=== PATIENT | female | born 1985 | race Caucasian/White ===

== ENCOUNTER 2016-12-19 14:15 | Emergency (ER) | payer OTHER ==
[~2016-12-19 14:15] MED LIST: MULT-317 PO
[2016-12-19] MEDS ORDERED: IV NORMAL SALINE 500ML 500 ML IV ONE (14:30)
[2016-12-19 14:50] LABS: BASO % 1 % (0-3); EOS % 1 % (0-3); HEMATOCRIT 43.6 % (36.0-47.0); HEMOGLOBIN 15.2 g/dL (12.0-15.5); LYMPH # 1.5 x10^3/uL (1.0-4.8); LYMPH % 20 % (24-48); MEAN CORPUSCULAR HEMOGLOBIN 33 pg (25-35); MEAN CORPUSCULAR HGB CONC 35 g/dL (31-37); MEAN CORPUSCULAR VOLUME 95 fL (79-100); MONO # 0.3 x10^3/uL (0.0-1.1); MONO % 4 % (0-9); NEUT # 5.5 x10^3uL (1.8-7.7); NEUT % 75 % (31-73); PLATELET COUNT 342 x10^3/uL (140-400); RED BLOOD COUNT 4.61 x10^6/uL (3.50-5.40); RED CELL DISTRIBUTION WIDTH 12.3 % (11.5-14.5); WHITE BLOOD COUNT 7.3 x10^3/uL (4.0-11.0)
[2016-12-19 15:03] LABS: CALCIUM 8.8 mg/dL (8.5-10.1); CREATININE 0.5 mg/dL (0.6-1.0); DIRECT BILIRUBIN 0.1 mg/dL (0.0-0.2); GFR 142.1; POTASSIUM 3.6 mmol/L (3.5-5.1); TOTAL BILIRUBIN 0.4 mg/dL (0.2-1.0); TOTAL PROTEIN 7.7 g/dL (6.4-8.2)
[2016-12-19] MEDS ORDERED: ONDANSETRON PF 4 MG/2 ML VIAL. IV ONE (15:15)
[2016-12-19] MEDS: HYDROmorphone PF 1 MG/ML DISP.SYRIN IV PRN ×2 (15:24→17:04)
--- NOTE | 2016-12-19 15:45 | PHYS DOC ---
Past History Past Medical History: Heart Disease, Other Past Surgical History: Appendectomy, Other Alcohol Use: Occasionally Drug Use: None Adult General Chief Complaint Chief Complaint: ABDOMINAL PAIN HPI HPI 31-year-old female with history of a partial hysterectomy which included the uterus and the cervix complicated by mesh erosion into the bladder which had to be surgically corrected by a urologist at [facility] many years ago. She presents today to the emergency department with left lower quadrant abdominal pain that is sharp shooting pain nonradiating intermittent and without alleviating factors. She also recently reports having an ablation. There are no alleviating or exacerbating factors to her pain outside of when she stands up her pain is worse. She denies any hernias of the groin or pain in the groin but describes her pain is in the abdomen. She reports that the ablations surgical site was in the right groin and her pain is in the left abdomen. Review of systems is negative for chest pain shortness of breath. She denies unilateral leg swelling hemoptysis or personal or family history of blood clotting disorders. All other review of systems is negative unless otherwise noted in history of present illness. ED course: 31-year-old female presenting to the emergency department today with left lower quadrant abdominal pain. Vital signs show mild tachycardia likely secondary to pain. Pertinent physical examination findings show an abdomen is soft and mildly tender in the left lower quadrant without rebound tenderness or guarding. Nontender groin without any evidence of herniation or palpable aneurysms. Groin site is clean dry and intact. Palpable pulses in both lower extremities. IV established and fluids nausea and pain medications ordered along with blood work and CT of the abdomen pelvis. Urinalysis negative. Blood work unremarkable. Patient's tachycardia improved and on reexamination her pain and improved. The patient was then discharged home in stable condition to follow up with their primary care physician over the next 2-3 days. They were to return if their symptoms worsened or if they were concerned for any reason. [id number] discharge instructions and return precautions were given. Patient' s questions were answered to their satisfaction. Patient is comfortable plan. Review of Systems Review of Systems SEE ABOVE Current Medications Current Medications Current Medications Medications (Trade) Dose Ordered Sig/Deisi Start Time Stop Time Status Last Admin Dose Admin Hydromorphone HCl (Dilaudid) 0.5 mg PRN Q30MIN PRN 12/19/16 15:15 12/19/16 15:24 0.5 MG Ondansetron HCl (Zofran) 4 mg 1X ONCE 12/19/16 15:15 12/19/16 15:16 DC 12/19/16 15:24 4 MG Sodium Chloride 500 ml @ 0 mls/hr 1X ONCE 12/19/16 14:30 12/19/16 14:31 DC 12/19/16 15:17 500 MLS/HR Allergies Allergies Allergies Coded Allergies Type Severity Reaction Last Updated Verified No Known Drug Allergies 04/24/13 No Physical Exam Physical Exam Constitutional: Well developed, well nourished, no acute distress, non-toxic appearance. [] HENT: Normocephalic, atraumatic, bilateral external ears normal, oropharynx moist, no oral exudates, nose normal. [] Eyes: PERRLA, EOMI, conjunctiva normal, no discharge. [] Neck: Normal range of motion, no tenderness, supple, no stridor. [] Cardiovascular:Heart rate regular rhythm, no murmur [] Lungs & Thorax: Bilateral breath sounds clear to auscultation [] Abdomen: Bowel sounds normal, see above, no masses, no pulsatile masses. [] Skin: Warm, dry, no erythema, no rash. [] Back: No tenderness, no CVA tenderness. [] Extremities: No tenderness, no cyanosis, no clubbing, ROM intact, no edema. [] Neurologic: Alert and oriented X 3, normal motor function, normal sensory function, no focal deficits noted. [] Psychologic: Affect normal, judgement normal, mood normal. [] Current Patient Data Vital Signs Vital Signs Date Time Temp Pulse Resp B/P (MAP) Pulse Ox O2 Delivery O2 Flow Rate FiO2 12/19/16 15:24 22 96 Room Air 12/19/16 14:20 98.7 102 Lab Results Laboratory Tests Test 12/19/16 14:34 White Blood Count 7.3 x10^3/uL (4.0-11.0) Red Blood Count 4.61 x10^6/uL (3.50-5.40) Hemoglobin 15.2 g/dL (12.0-15.5) Hematocrit 43.6 % (36.0-47.0) Mean Corpuscular Volume 95 fL (79-100) Mean Corpuscular Hemoglobin 33 pg (25-35) Mean Corpuscular Hemoglobin Concent 35 g/dL (31-37) Red Cell Distribution Width 12.3 % (11.5-14.5) Platelet Count 342 x10^3/uL (140-400) Neutrophils (%) (Auto) 75 % (31-73) H Lymphocytes (%) (Auto) 20 % (24-48) L Monocytes (%) (Auto) 4 % (0-9) Eosinophils (%) (Auto) 1 % (0-3) Basophils (%) (Auto) 1 % (0-3) Neutrophils # (Auto) 5.5 x10^3uL (1.8-7.7) Lymphocytes # (Auto) 1.5 x10^3/uL (1.0-4.8) Monocytes # (Auto) 0.3 x10^3/uL (0.0-1.1) Eosinophils # (Auto) 0.0 x10^3/uL (0.0-0.7) Basophils # (Auto) 0.0 x10^3/uL (0.0-0.2) Sodium Level 142 mmol/L (136-145) Potassium Level 3.6 mmol/L (3.5-5.1) Chloride Level 106 mmol/L (98-107) Carbon Dioxide Level 26 mmol/L (21-32) Anion Gap 10 (6-14) Blood Urea Nitrogen 7 mg/dL (7-20) Creatinine 0.5 mg/dL (0.6-1.0) L Estimated GFR (Cockcroft-Gault) 142.1 Glucose Level 105 mg/dL (70-99) H Lactic Acid Level 1.4 mmol/L (0.4-2.0) Calcium Level 8.8 mg/dL (8.5-10.1) Total Bilirubin 0.4 mg/dL (0.2-1.0) Direct Bilirubin 0.1 mg/dL (0.0-0.2) Aspartate Amino Transferase (AST) 21 U/L (15-37) Alanine Aminotransferase (ALT) 24 U/L (14-59) Alkaline Phosphatase 24 U/L (46-116) L Total Protein 7.7 g/dL (6.4-8.2) Albumin 4.0 g/dL (3.4-5.0) EKG EKG [] Radiology/Procedures Radiology/Procedures [] Course & Med Decision Making Course & Med Decision Making Pertinent Labs and Imaging studies reviewed. (See chart for details) [] Dragon Disclaimer Dragon Disclaimer This chart was dictated in whole or in part using Voice Recognition software in a busy, high-work load, and often noisy Emergency Department environment. It may contain unintended and wholly unrecognized errors or omissions. Departure Departure: Impression: Primary Impression: Abdominal pain, left lower quadrant Disposition: HOME, SELF-CARE Condition: STABLE Referrals: JAMES DANGELO (PCP) Patient Instructions: Abdominal Pain (Nonspecific) Additional Instructions: Thank you for allowing us to participate in your care today. Followup with your primary care physician in 3 days if your symptoms do not improve. Call your Primary Doctor tomorrow and inform them of your visit today. If you do not have a primary care provider you can ask for a list of our primary care providers. Return to the emergency department you have any new or concerning findings. This should be evaluated by the primary care physician and any necessary consulting services for continued management within a few days after discharge. Return to emergency room if you have any new or concerning symptoms including but not limited to fever, chills, nausea, vomiting, intractable pain, any new rashes, chest pain, shortness of air, uncontrolled bleeding, difficulty breathing, and/or vision loss. You may have been prescribed medication that can change in your level of thinking and ability to operate machinery. These medications include hydrocodone and Ativan. Also, Benadryl has been known to do this as well. Be sure to check with your pharmacist and ask if the medications you've prescribed can affect your level of consciousness. I recommend not operating heavy machinery or driving while on medication such as these. Scripts Hydrocodone Bit/Acetaminophen (HYDROCODONE-APAP 5-325 ) 1 Each Tablet 1 TAB PO PRN Q6HRS Y for PAIN, #10 TAB 0 Refills Prov: LENCHO WALTER MD 12/19/16 Ondansetron Hcl (ZOFRAN) 4 Mg Tablet 1 TAB PO PRN Q6HRS Y for NAUSEA, #6 TAB Prov: LENCHO WALTER MD 12/19/16 LENCHO WALTER MD Dec 19, 2016 15:45
[2016-12-19 15:52] LABS: BILIRUBIN,URINE NEG (NEG); CLARITY,URINE CLEAR; COLOR,URINE COLORLESS; GLUCOSE,URINE NEG (NEG)
[2016-12-19 15:53] LABS: BACTERIA,URINE 0 /HPF (0-FEW); NITRITE,URINE NEG (NEG); RBC,URINE 0 /HPF (0-2); SQUAMOUS EPITHELIAL CELL,UR FEW /LPF; UROBILINOGEN,URINE 0.2 mg/dL (0.2 mg/dL); WBC,URINE 0 /HPF (0-4)
[2016-12-19] MEDS ORDERED: IOHEXOL 300 MG/ML 75 ML VIAL. IV ONE (16:15)
--- NOTE | 2016-12-19 16:52 | RAD ---
CT of the abdomen and pelvis with contrast, 12/19/2016: History: Left-sided pain Multidetector CT imaging was performed following an IV bolus injection of iodinated contrast material. No oral contrast material was administered for this study. There is minimal linear atelectasis or scarring posteriorly in the lung bases. No hepatic abnormality is detected. The gallbladder is unremarkable. The pancreas shows no abnormality. The spleen is of normal size. No renal or adrenal abnormality is detected. The abdominal aorta is unremarkable. No abdominal or pelvic adenopathy is seen. The uterus is surgically absent. There are small cysts in the ovaries. The bowel loops are not dilated. The appendix is reportedly surgically absent. No free air or significant free fluid is evident in the abdomen or pelvis. IMPRESSION: No acute abnormality is detected. PQRS Compliance Statement: One or more of the following individualized dose reduction techniques were utilized for this examination: 1. Automated exposure control 2. Adjustment of the mA and/or kV according to patient size 3. Use of iterative reconstruction technique
[2016-12-19] MEDS ORDERED: ONDA4TAB7 PO (17:41)
[2016-12-19] MEDS ORDERED: HYDR-2758 PO (17:41)
[2016-12-19 18:16] VITALS: BP 121/80
--- NOTE | 2016-12-19 19:12 | EKG ---
[address] [address] Test Date: 2016-12-19 Test Time: 14:42:18 Pat Name: NOHEMY WIN Department: Room: Gender: F Director Of Safety And Security: DORON : 1985 Requested By: LENCHO WALTER Order Number: [id number] Reading MD: Measurements Intervals [place] Rate: 100 P: 49 NM: 118 QRS: 37 QRSD: 80 T: 39 QT: 344 QTc: 447 Interpretive Statements SINUS RHYTHM NO SPECIFIC ECG ABNORMALITIES RI6.01 No previous ECG available for comparison
== END 2016-12-19 18:19 | disposition home or self-care (01) ==
LOC: ER 14:15
DX: R10.32 Left lower quadrant pain (principal); Z90.49 Acquired absence of other specified parts of digestive tract; I51.9 Heart disease, unspecified
CPT/HCPCS: 36415; 74177; 80048; 80076; 81001; 83605; 85025; 93005; 96374; 96375; 96376; 99285; J1170; J2405; J7040

== ENCOUNTER 2016-12-20 13:29 | Emergency (ER) | payer OTHER ==
[~2016-12-20] VITALS: Ht 170.2 cm; Wt 64.4 kg
[~2016-12-20 13:29] MED LIST changes: +HYDR-2758 PO; +ONDA4TAB7 PO
[2016-12-20] MEDS ORDERED: IV NORMAL SALINE 1,000ML 1,000 ML IV ONE (13:45)
[2016-12-20] MEDS ORDERED: ONDANSETRON PF 4 MG/2 ML VIAL. IV ONE (13:45)
[2016-12-20] MEDS: HYDROmorphone PF 1 MG/ML DISP.SYRIN IV PRN ×2 (13:58→15:37)
[2016-12-20 14:02] LABS: BASO % 1 % (0-3); EOS % 1 % (0-3); HEMATOCRIT 45.8 % (36.0-47.0); HEMOGLOBIN 15.9 g/dL (12.0-15.5); LYMPH # 1.7 x10^3/uL (1.0-4.8); LYMPH % 24 % (24-48); MEAN CORPUSCULAR HEMOGLOBIN 33 pg (25-35); MEAN CORPUSCULAR HGB CONC 35 g/dL (31-37); MEAN CORPUSCULAR VOLUME 95 fL (79-100); MONO # 0.3 x10^3/uL (0.0-1.1); MONO % 5 % (0-9); NEUT # 4.8 x10^3uL (1.8-7.7); NEUT % 70 % (31-73); PLATELET COUNT 349 x10^3/uL (140-400); RED CELL DISTRIBUTION WIDTH 12.4 % (11.5-14.5); WHITE BLOOD COUNT 6.9 x10^3/uL (4.0-11.0)
[2016-12-20 14:23] LABS: BILIRUBIN,URINE NEG (NEG); CLARITY,URINE CLOUDY; COLOR,URINE YELLOW; GLUCOSE,URINE NEG (NEG); NITRITE,URINE NEG (NEG); UROBILINOGEN,URINE 0.2 mg/dL (0.2 mg/dL)
[2016-12-20 14:24] LABS: BACTERIA,URINE FEW /HPF (0-FEW); SQUAMOUS EPITHELIAL CELL,UR FEW /LPF
[2016-12-20 14:41] LABS: ALBUMIN 3.6 g/dL (3.4-5.0); CALCIUM 8.5 mg/dL (8.5-10.1); CREATININE 0.6 mg/dL (0.6-1.0); DIRECT BILIRUBIN 0.1 mg/dL (0.0-0.2); GFR 115.1; POTASSIUM 3.6 mmol/L (3.5-5.1); TOTAL BILIRUBIN 0.4 mg/dL (0.2-1.0); TOTAL PROTEIN 7.2 g/dL (6.4-8.2)
--- NOTE | 2016-12-20 15:04 | PHYS DOC ---
Past History Past Medical History: Heart Disease, Other Past Surgical History: Appendectomy, Hysterectomy, Other Alcohol Use: Occasionally Drug Use: None Adult General Chief Complaint Chief Complaint: ABDOMINAL PAIN HPI HPI This is a pleasant 31-year-old female presenting to the emergency department with left lower quadrant abdominal pain. I had the pleasure of seeing her yesterday. Her workup yesterday was unremarkable including lab work and CT the abdomen pelvis. She presents having worsening nausea vomiting and abdominal pain. The pain is a sharp shooting pain that radiates into the groin. The pain is moderate to severe and associated with nausea. She denies blood or bilious vomitus. Patient is tried her hydrocodone and Zofran home which has not been helping. Review of systems is negative for polyuria dysuria fevers chills chest pain or shortness of breath. All other review of systems is negative unless otherwise noted in history of present illness. ED course: 31-year-old female presenting to the emergency department today with left lower quadrant abdominal pain. Vital signs show the patient may be afebrile with a normal heart rate and normal saturations. We established and IV due to the patient's pain level. IV pain nausea and fluids administered in the emergency department. Repeat blood testing performed. Given the patient's failure of outpatient therapy the patient will be admitted. Due to the patient' s previous surgical history which seems to be related the patient will be transferred to [facility] for probable gynecology and general surgery consultation. Review of Systems Review of Systems SEE ABOVE. Current Medications Current Medications Current Medications Medications (Trade) Dose Ordered Sig/[facility] Start Time Stop Time Status Last Admin Dose Admin Hydromorphone HCl (Dilaudid) 0.5 mg PRN Q30MIN PRN 12/20/16 13:45 12/20/16 13:58 0.5 MG Ondansetron HCl (Zofran) 4 mg 1X ONCE 12/20/16 13:45 12/20/16 13:46 DC 12/20/16 13:57 4 MG Sodium Chloride 1,000 ml @ 1,000 mls/hr 1X ONCE 12/20/16 13:45 12/20/16 14:44 DC 12/20/16 13:56 1,000 MLS/HR Allergies Allergies Allergies Coded Allergies Type Severity Reaction Last Updated Verified No Known Drug Allergies 04/24/13 No Physical Exam Physical Exam SEE ABOVE Constitutional: Well developed, well nourished, no acute distress, non-toxic appearance. [] HENT: Normocephalic, atraumatic, bilateral external ears normal, oropharynx moist, no oral exudates, nose normal. [] Eyes: PERRLA, EOMI, conjunctiva normal, no discharge. [] Neck: Normal range of motion, no tenderness, supple, no stridor. [] Cardiovascular:Heart rate regular rhythm, no murmur [] Lungs & Thorax: Bilateral breath sounds clear to auscultation [] Abdomen: Abdomen is soft and mildly tender to palpation in the left lower quadrant. No rebound tenderness or guarding. Skin: Warm, dry, no erythema, no rash. [] Back: No tenderness, no CVA tenderness. [] Extremities: No tenderness, no cyanosis, no clubbing, ROM intact, no edema. [] Neurologic: Alert and oriented X 3, normal motor function, normal sensory function, no focal deficits noted. [] Psychologic: Affect normal, judgement normal, mood normal. [] Current Patient Data Vital Signs Vital Signs Date Time Temp Pulse Resp B/P (MAP) Pulse Ox O2 Delivery O2 Flow Rate FiO2 12/20/16 13:58 12 12/20/16 13:35 98.4 77 98 Room Air Lab Results Laboratory Tests Test 12/20/16 13:44 12/20/16 13:55 12/20/16 14:15 White Blood Count 6.9 x10^3/uL (4.0-11.0) Red Blood Count 4.80 x10^6/uL (3.50-5.40) Hemoglobin 15.9 g/dL (12.0-15.5) H Hematocrit 45.8 % (36.0-47.0) Mean Corpuscular Volume 95 fL (79-100) Mean Corpuscular Hemoglobin 33 pg (25-35) Mean Corpuscular Hemoglobin Concent 35 g/dL (31-37) Red Cell Distribution Width 12.4 % (11.5-14.5) Platelet Count 349 x10^3/uL (140-400) Neutrophils (%) (Auto) 70 % (31-73) Lymphocytes (%) (Auto) 24 % (24-48) Monocytes (%) (Auto) 5 % (0-9) Eosinophils (%) (Auto) 1 % (0-3) Basophils (%) (Auto) 1 % (0-3) Neutrophils # (Auto) 4.8 x10^3uL (1.8-7.7) Lymphocytes # (Auto) 1.7 x10^3/uL (1.0-4.8) Monocytes # (Auto) 0.3 x10^3/uL (0.0-1.1) Eosinophils # (Auto) 0.0 x10^3/uL (0.0-0.7) Basophils # (Auto) 0.0 x10^3/uL (0.0-0.2) Urine Collection Type Unknown Urine Color Yellow Urine Clarity Cloudy Urine pH 5.5 Urine Specific [place] 1.025 Urine Protein Neg (NEG-TRACE) Urine Glucose (UA) Neg mg/dL (NEG) Urine Ketones (Stick) 15 mg/dL (NEG) Urine Blood Neg (NEG) Urine Nitrite Neg (NEG) Urine Bilirubin Neg (NEG) Urine Urobilinogen Dipstick 0.2 mg/dL (0.2 mg/dL) Urine Leukocyte Esterase Neg (NEG) Urine RBC 1-2 /HPF (0-2) Urine WBC 1-4 /HPF (0-4) Urine Squamous Epithelial Cells Few /LPF Urine Bacteria Few /HPF (0-FEW) Urine Mucus Mod /LPF Sodium Level 140 mmol/L (136-145) Potassium Level 3.6 mmol/L (3.5-5.1) Chloride Level 105 mmol/L (98-107) Carbon Dioxide Level 30 mmol/L (21-32) Anion Gap 5 (6-14) L Blood Urea Nitrogen 8 mg/dL (7-20) Creatinine 0.6 mg/dL (0.6-1.0) Estimated GFR (Cockcroft-Gault) 115.1 Glucose Level 73 mg/dL (70-99) Calcium Level 8.5 mg/dL (8.5-10.1) Total Bilirubin 0.4 mg/dL (0.2-1.0) Direct Bilirubin 0.1 mg/dL (0.0-0.2) Aspartate Amino Transferase (AST) 22 U/L (15-37) Alanine Aminotransferase (ALT) 24 U/L (14-59) Alkaline Phosphatase 24 U/L (46-116) L Total Protein 7.2 g/dL (6.4-8.2) Albumin 3.6 g/dL (3.4-5.0) Lipase 100 U/L (73-393) EKG EKG [] Radiology/Procedures Radiology/Procedures [] Course & Med Decision Making Course & Med Decision Making Pertinent Labs and Imaging studies reviewed. (See chart for details) [] Dragon Disclaimer Dragon Disclaimer This chart was dictated in whole or in part using Voice Recognition software in a busy, high-work load, and often noisy Emergency Department environment. It may contain unintended and wholly unrecognized errors or omissions. Departure Departure: Impression: Primary Impression: Abdominal pain Disposition: XFER SHT-TRM HOSP Condition: STABLE (Dr. Mario is accepting physician) Referrals: JAMES DANGELO (PCP) LENCHO WALTER MD Dec 20, 2016 15:04
[2016-12-20] MEDS ORDERED: METOCLOPRAMIDE HCL 10 MG/2 ML VIAL. IV ONE (15:50)
--- NOTE | 2016-12-20 16:38 | RAD ---
Ultrasound pelvis Indication: Left lower quadrant pain for 2 days. History of transvaginal tape repair and 2015. Hysterectomy in 2013. Technique: Transabdominal and transvaginal ultrasound images of the pelvis obtained. Comparison: CT from the same day Findings: Uterus surgically absent. No free fluid in the cul-de-sac. The right ovary measures 3.1 x 1.9 x 3.4 cm with follicle. Normal blood flow is seen in the right ovary on Doppler interrogation. The left ovary measures 2.7 x 2.4 x 2.2 cm with dominant follicles. Evidence of blood flow seen on the Doppler interrogation. Impression: 1. Status post hysterectomy. 2. Ovaries are visualized with follicles and evidence of blood flow.
[2016-12-20] MEDS ORDERED: ACETAMINOPHEN 500 MG TABLET PO ONE (18:45)
[2016-12-20 18:46] VITALS: BP 130/79
== END 2016-12-20 20:04 | disposition short-term general hospital (02) ==
LOC: ER 13:29
DX: R10.32 Left lower quadrant pain (principal); R11.2 Nausea with vomiting, unspecified; I51.9 Heart disease, unspecified; Z90.710 Acquired absence of both cervix and uterus; Z90.49 Acquired absence of other specified parts of digestive tract
CPT/HCPCS: 36415; 76830; 76856; 80048; 80076; 81001; 83690; 85025; 96361; 96374; 96375; 96376; 99285; J1170; J2405; J2765; J7030

== ENCOUNTER 2017-11-16 17:48 | Inpatient (IN) | payer OTHER ==
[~2017-11-16] VITALS: Ht 170.2 cm; Wt 75.0 kg
[2017-11-16 18:22] LABS: BASO % 1 % (0-3); EOS # 0.1 x10^3/uL (0.0-0.7); EOS % 1 % (0-3); HEMATOCRIT 45.5 % (36.0-47.0); HEMOGLOBIN 15.3 g/dL (12.0-15.5); LYMPH # 1.4 x10^3/uL (1.0-4.8); LYMPH % 21 % (24-48); MEAN CORPUSCULAR HEMOGLOBIN 32 pg (25-35); MEAN CORPUSCULAR HGB CONC 34 g/dL (31-37); MEAN CORPUSCULAR VOLUME 96 fL (79-100); MONO # 0.8 x10^3/uL (0.0-1.1); MONO % 12 % (0-9); NEUT # 4.5 x10^3uL (1.8-7.7); NEUT % 67 % (31-73); PLATELET COUNT 324 x10^3/uL (140-400); RED BLOOD COUNT 4.75 x10^6/uL (3.50-5.40); RED CELL DISTRIBUTION WIDTH 13.6 % (11.5-14.5); WHITE BLOOD COUNT 6.8 x10^3/uL (4.0-11.0)
[2017-11-16 18:32] LABS: ALBUMIN 3.9 g/dL (3.4-5.0); CALCIUM 9.2 mg/dL (8.5-10.1); CREATININE 0.7 mg/dL (0.6-1.0); GFR 95.8; POTASSIUM 3.6 mmol/L (3.5-5.1); TOTAL BILIRUBIN 0.5 mg/dL (0.2-1.0); TOTAL PROTEIN 7.9 g/dL (6.4-8.2)
--- NOTE | 2017-11-16 18:33 | PHYS DOC ---
Past History Past Medical History: TIA, Other Past Surgical History: Hysterectomy, Other Alcohol Use: Occasionally Drug Use: None Adult General Chief Complaint Chief Complaint: FACE PROBLEM HPI HPI 32-year-old female presents with 2 day history of left-sided weakness in her upper and lower extremity. She also has a twitch in the left side of her mouth. Patient states that yesterday morning she began have a little bit of double vision that only lasted for a few minutes. She felt "weird" all the rest of the day. She states that she felt a bit off balance and unsteady. Yesterday evening she noticed some left-sided weakness when she picked up a box of cereal and dropped it. She came in today because she continues to have left-sided weakness in her upper and lower extremity and a feeling of being off balance. She denies headache. She denies visual changes. Her vision has returned to normal. She has not had any difficulty communicating. She believes her voice sounds normal. She denies fever or chills. The patient has a history of SVT with ablation 2 years ago. She continues to be on metoprolol for rate control. One year ago she believes she might have had a TIA according to her cement car dumper and neurologist. She had left-sided facial droop and jumbled speech with that episode that improved. Review of Systems Review of Systems Constitutional: Denies fever or chills [] Eyes: Denies change in visual acuity, redness, or eye pain [] HENT: Left-sided mouth twitch with large smile[] Respiratory: Denies cough or shortness of breath [] Cardiovascular: No additional information not addressed in HPI [] GI: Denies abdominal pain, nausea, vomiting, bloody stools or diarrhea [] : Denies dysuria or hematuria [] Musculoskeletal: Left upper and lower extremity strength decreased compared to right.[] Integument: Denies rash or skin lesions [] Neurologic: Denies headache. [] Endocrine: Denies polyuria or polydipsia [] All other systems were reviewed and found to be within normal limits, except as documented in this note. Allergies Allergies Allergies Coded Allergies Type Severity Reaction Last Updated Verified No Known Drug Allergies 11/16/17 No Physical Exam Physical Exam Constitutional: Well developed, well nourished, no acute distress, non-toxic appearance. [] HENT: Normocephalic, atraumatic, bilateral external ears normal, oropharynx moist, no oral exudates, nose normal. [] Eyes: PERRLA, EOMI, conjunctiva normal, no discharge. [] Neck: Normal range of motion, no tenderness, supple, no stridor. [] Cardiovascular:Heart rate regular rhythm with occasional extra beats, no murmur [] Lungs & Thorax: Bilateral breath sounds clear to auscultation [] Abdomen: Bowel sounds normal, soft, no tenderness, no masses, no pulsatile masses. [] Skin: Warm, dry, no erythema, no rash. [] Back: No tenderness, no CVA tenderness. [] Extremities: No tenderness, no cyanosis, no clubbing, ROM intact, no edema. [] Neurologic: Alert and oriented X 3, left upper and lower extremity weakness 4-5 compared to right. Normal sensory function. Left facial twitch of the mouth with large smile. The rest of the neuro exam was unremarkable.[] Psychologic: Affect normal, judgement normal, mood normal. [] Current Patient Data Vital Signs Vital Signs Date Time Temp Pulse Resp B/P (MAP) Pulse Ox O2 Delivery O2 Flow Rate FiO2 11/16/17 18:00 98.5 86 18 97 Room Air Lab Results Laboratory Tests Test 11/16/17 18:05 11/16/17 18:07 White Blood Count 6.8 x10^3/uL (4.0-11.0) Red Blood Count 4.75 x10^6/uL (3.50-5.40) Hemoglobin 15.3 g/dL (12.0-15.5) Hematocrit 45.5 % (36.0-47.0) Mean Corpuscular Volume 96 fL (79-100) Mean Corpuscular Hemoglobin 32 pg (25-35) Mean Corpuscular Hemoglobin Concent 34 g/dL (31-37) Red Cell Distribution Width 13.6 % (11.5-14.5) Platelet Count 324 x10^3/uL (140-400) Neutrophils (%) (Auto) 67 % (31-73) Lymphocytes (%) (Auto) 21 % (24-48) L Monocytes (%) (Auto) 12 % (0-9) H Eosinophils (%) (Auto) 1 % (0-3) Basophils (%) (Auto) 1 % (0-3) Neutrophils # (Auto) 4.5 x10^3uL (1.8-7.7) Lymphocytes # (Auto) 1.4 x10^3/uL (1.0-4.8) Monocytes # (Auto) 0.8 x10^3/uL (0.0-1.1) Eosinophils # (Auto) 0.1 x10^3/uL (0.0-0.7) Basophils # (Auto) 0.0 x10^3/uL (0.0-0.2) Glucose (Fingerstick) 117 mg/dL (70-99) H EKG EKG [] Radiology/Procedures Radiology/Procedures [] Impressions: PQRS Compliance statement: One or more of the following individualized dose reduction techniques were utilized for this examination: 1. Automated exposure control. 2. Adjustment of the mA and/or kV according to patient size. 3. Use of iterative reconstruction technique. Indication:Left sided weakness x2 days. Left facial twitch TECHNIQUE: CT head without IV contrast COMPARISON:None FINDINGS: No pathologic extra-axial or intra-axial fluid collection. The ventricles and basal cisterns are within normal limits. No acute intracranial bleed. Visualized orbits within normal limits. No suspicious calvarial lesion. Visualized paranasal sinuses and mastoid air cells are clear. No focal loss of beard-white differentiation. IMPRESSION: No acute intracranial process. If concern for acute ischemic stroke is high, please consider MRI brain. Electronically signed by: Gustavo Johnson DO (11/16/2017 6:59 PM) [facility] DICTATED AND SIGNED BY: GUSTAVO JOHNSON DO DATE: 11/16/171856 CC: JEFF FLORES DO; ERINN THOMPSON MD Course & Med Decision Making Course & Med Decision Making Pertinent Labs and Imaging studies reviewed. (See chart for details) Asians labs are unremarkable. Her head CT is negative for bleed or other acute findings. She continues to have no headache. She still has the left-sided weakness. I discussed the case with the neurologist, Dr. Zuleta and he has recommended observation admission at this time. I discussed the case with Dr. Thompson who has agreed to admit her for further management. [] Dragon Disclaimer Dragon Disclaimer This electronic medical record was generated, in whole or in part, using a voice recognition dictation system. Departure Departure: Referrals: ERINN THOMPSON MD (PCP) JEFF FLORES DO Nov 16, 2017 18:33
--- NOTE | 2017-11-16 19:02 | RAD ---
PQRS Compliance statement: One or more of the following individualized dose reduction techniques were utilized for this examination: 1. Automated exposure control. 2. Adjustment of the mA and/or kV according to patient size. 3. Use of iterative reconstruction technique. Indication:Left sided weakness x2 days. Left facial twitch TECHNIQUE: CT head without IV contrast COMPARISON:None FINDINGS: No pathologic extra-axial or intra-axial fluid collection. The ventricles and basal cisterns are within normal limits. No acute intracranial bleed. Visualized orbits within normal limits. No suspicious calvarial lesion. Visualized paranasal sinuses and mastoid air cells are clear. No focal loss of beard-white differentiation. IMPRESSION: No acute intracranial process. If concern for acute ischemic stroke is high, please consider MRI brain. Electronically signed by: Gustavo Johnson DO (11/16/2017 6:59 PM) [facility]
[2017-11-16 21:51] VITALS: BP 126/71
[2017-11-16] MEDS ORDERED: biotin (22:48)
[2017-11-16] MEDS ORDERED: METO25TA4 PO (22:49)
[2017-11-16] MEDS ORDERED: GUAI600T47 PO (22:49)
[2017-11-16 23:00] VITALS: BP 118/74
[2017-11-17 03:10] VITALS: BP 112/65
[2017-11-17 06:18] LABS: BASO % 1 % (0-3); EOS # 0.2 x10^3/uL (0.0-0.7); EOS % 4 % (0-3); HEMATOCRIT 43.2 % (36.0-47.0); HEMOGLOBIN 14.6 g/dL (12.0-15.5); LYMPH # 1.8 x10^3/uL (1.0-4.8); LYMPH % 32 % (24-48); MEAN CORPUSCULAR HEMOGLOBIN 33 pg (25-35); MEAN CORPUSCULAR HGB CONC 34 g/dL (31-37); MEAN CORPUSCULAR VOLUME 96 fL (79-100); MONO # 0.7 x10^3/uL (0.0-1.1); MONO % 12 % (0-9); NEUT # 2.8 x10^3uL (1.8-7.7); NEUT % 51 % (31-73); PLATELET COUNT 264 x10^3/uL (140-400); RED CELL DISTRIBUTION WIDTH 13.2 % (11.5-14.5); WHITE BLOOD COUNT 5.5 x10^3/uL (4.0-11.0)
[2017-11-17 06:21] LABS: CALCIUM 8.9 mg/dL (8.5-10.1); CREATININE 0.6 mg/dL (0.6-1.0); GFR 114.4; POTASSIUM 3.4 mmol/L (3.5-5.1)
[2017-11-17 06:32] VITALS: BP 110/77
[2017-11-17] MEDS ORDERED: POTASSIUM CHLORIDE 20 MEQ TABLET.ER. PO ONE (10:00)
[2017-11-17 11:22] VITALS: BP 119/78
[2017-11-17] MEDS: ASPIRIN 81 MG TAB.CHEW PO SCH (14:43)
[2017-11-17 14:50] VITALS: BP 113/75
[2017-11-17 19:26] VITALS: BP 107/64
--- NOTE | 2017-11-17 22:28 | CONS ---
DATE OF CONSULTATION: 11/17/2017 NEUROLOGICAL CONSULTATION REFERRING PHYSICIAN: Murali Acuna MD REASON FOR CONSULTATION: Rule out TIA versus stroke. HISTORY OF PRESENT ILLNESS: This is a very pleasant 32-year-old right-handed female, who was admitted to Emergency Room yesterday after she presented with 2-day history of intermittent left-sided weakness, double vision and slurred speech. According to the patient and in the day of admission, she started having double vision lasted few minutes along with balance along with impaired balance. Later on, she started having left-sided weakness including the arm and leg. The patient stated her weakness has been steady until this evaluation. She described similar episode twice over the last few months along with slurred speech. Currently, she denies headaches, visual disturbances, nausea, vomiting, chest pain, shortness of breath or palpitation, dysarthria, dysphagia or vertigo. Initial non-enhanced head CT scan revealed no evidence of acute intracranial process. PAST MEDICAL HISTORY: Significant for cardiac arrhythmia described as SVT required ablation 2 years ago. Since that time, she has been on metoprolol, which controlled her rhythm well, history of bladder dysfunction required stimulant implant in the bladder. The patient had similar episode 2 years ago. She has been seen by neurologist in [place] and MRI was performed, which revealed no significant abnormalities. PAST SURGICAL HISTORY: Significant for bladder stimulant implant, hysterectomy and cardiac ablation. FAMILY HISTORY: The patient stated her grandmom and aunt had history of Leiden factor V deficiency and they have been on anticoagulants. Her father at age of 36 from massive heart attack. Her mother is doing well and she is alive and she has a sister who has cardiac arrhythmia, but she did not need ablation. SOCIAL HISTORY: The patient is . 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 She is a mother of 2 children at the age of 15 and 11. She denies smoking, alcohol drinking or illicit drug use. CURRENT HOME MEDICATIONS: Metoprolol. ALLERGIES: No known drug allergies. REVIEW OF SYSTEMS: A 10-point review of system was performed as mentioned above in history of present illness, otherwise, unremarkable. PHYSICAL EXAMINATION: GENERAL: Well-developed, well-nourished female, not in acute distress. She weighs 167.3 pounds. VITAL SIGNS: Blood pressure 119/78, respiratory rate 16, pulse is 62 and regular, temperature 98.4, oxygen saturation is 95% on room air. HEENT: Normocephalic, atraumatic, otherwise, unremarkable. NECK: Supple. Negative for carotid bruit, lymphadenopathy or thyromegaly. LUNGS: Clear to A and P. CARDIOVASCULAR: Regular rate and rhythm, normal S1, S2. There is no S3, S4, or murmur. ABDOMEN: Soft. Bowel sounds positive. EXTREMITIES: Negative for cyanosis, clubbing or pitting edema. NEUROLOGIC: Mental status: The patient is alert and oriented x 3. The speech is fluent. There is no language dysfunction. Memory, judgment, and abstract thinking are normal. The patient denies hallucination or delusion. CRANIAL NERVES: Visual herrera are full. The pupils are reactive to light and accommodation. The extraocular movements are intact. There is no nystagmus. There is no facial motor or sensory deficit. Hearing is intact bilaterally. The palate is elevated symmetrically. Sternocleidomastoid muscles are powerful bilaterally. The patient shrugs her shoulders symmetrically and protrudes her tongue in the midline without fasciculation or atrophy. MOTOR: No focal muscle bulk was seen. The tone is normal. The strength is 5/5 throughout. SENSORY EXAMINATION: Normal pinprick, light touch, vibratory and position senses. Deep tendon reflexes were symmetric and active without pathologic responses. Gait and coordination are normal. LABORATORY DATA: CBC revealed white blood cells of 5.5 thousand, hemoglobin 14.6, hematocrit 43.2, platelet count 264,000. Chemistry revealed sodium of 137, potassium 3.4, chloride 103, CO2 of 27, BUN 12, creatinine 0.6, glucose 84, calcium 8.9. PT is 9.3. INR is 0.9. EKG revealed normal sinus rhythm. IMPRESSION: 1. Intermittent left-sided weakness, double vision, impaired balance with current normal neurological examination: 2. History of cardiac arrhythmias, supraventricular tachycardia, required ablation. 3. Bladder dysfunction, required stimulant implant. 4. Hypokalemia. RECOMMENDATIONS: 1. Start the patient on baby aspirin at 81 mg. 2. We will check on Leiden factor V. 3. Potassium supplement. 4. Should the patient have recurrent multiple neurological complaints, we will obtain brain MRI with contrast, rule out central nervous system demyelinating process. M Adele WILSON MD DR: Marco JOB#: [id number] / [id number]
--- NOTE | 2017-11-18 01:16 | PN ---
DATE: SUBJECTIVE: The patient in ICU bed #5. The patient in with generalized weakness on her left side. The patient in turn has improved dramatically. We are going to have Neurology see her and make further evaluation on her. She noted twitching on the left side of her mouth as well as some double vision. She felt weird the rest of the day and the patient has been having problems with such. The patient initially seen in the office and then transferred to the Emergency Room because of the possible CVA. OBJECTIVE: VITAL SIGNS: Blood pressure 113/75, respirations 16, pulse 71, afebrile. NEUROLOGIC: The patient is alert and oriented. Speech a little bit garbled, some weakness to the left side of her body. Decreased occupational health nursing director. Reflexes hyperreflexia. IMPRESSION: Transient ischemic attack versus stroke in evolution. We will go ahead and continue to monitor the patient and have Dr. Zuleta, Neurology, review the patient and make further assessment on her as indicated. ERINN THOMPSON MD DR: WINTER/myra JOB#: [id number] / [id number]
[2017-11-18 05:10] VITALS: BP 126/62
[2017-11-18 05:41] LABS: CALCIUM 8.7 mg/dL (8.5-10.1); CREATININE 0.6 mg/dL (0.6-1.0); GFR 114.4; POTASSIUM 4.1 mmol/L (3.5-5.1)
[2017-11-18] MEDS: ASPIRIN 81 MG TAB.CHEW PO SCH (08:11)
[2017-11-18] MEDS ORDERED: ASPI-630 PO (10:24)
[2017-11-18 11:14] VITALS: BP 123/88
--- NOTE | 2017-11-18 11:33 | DS ---
DATE OF DISCHARGE: 11/18/2017 HOSPITAL COURSE: This 32-year-old female was admitted with left-sided weakness and tingling. The patient says she is somewhat better. She is still having a little bit of tingling, but however, she still continued to make good progress. Dr. Zuleta, neurologist, has reviewed her and this patient has been worked up extensively for this in the past. The patient noted she had a 2-day history of intermittent left-sided weakness, double vision, slurred speech, and these things have gradually gotten better. She has been recommended to follow up with Dr. Zuleta as well as her net mobile developer for possible ____ wire or NAYA to look for any signs of problems there. She says she does have arrhythmias. IMPRESSION: Transient ischemic attack, cardiac arrhythmias, supraventricular tachycardia, previously ablation therapy, bladder dysfunction, hypokalemia. The patient will be discharged home and followed up as an outpatient and make further evaluation on her as indicated with her net mobile developer and Neurology. IMPRESSION: Transient ischemic attack, hypokalemia, supraventricular tachycardia. Decreased activity. See MRAD. Follow up as indicated above. ERINN THOMPSON MD DR: WINTER/myra JOB#: [id number] / [id number]
== END 2017-11-18 11:28 | disposition home or self-care (01) | DRG 69 ==
LOC: ER 17:48 → ICU 21:00
PROVIDERS: ADMIT Family Medicine; ATTEND Family Medicine
DX: G45.9 Transient cerebral ischemic attack, unspecified (principal); I47.1 Supraventricular tachycardia; E87.6 Hypokalemia; N31.9 Neuromuscular dysfunction of bladder, unspecified; R47.81 Slurred speech; I49.9 Cardiac arrhythmia, unspecified; Z82.49 Family history of ischemic heart disease and other diseases of the circulatory system; Z90.710 Acquired absence of both cervix and uterus
CPT/HCPCS: 36415; 70450; 80048; 80053; 80061; 82947; 85025; 85610; 85730; 87641; 99285-25

== ENCOUNTER 2017-11-29 19:05 | Inpatient (IN) | payer OTHER ==
[~2017-11-29] VITALS: Ht 167.6 cm; Wt 72.6 kg
[~2017-11-29 19:05] MED LIST changes: +ASPI-630 PO; +GUAI600T47 PO; +METO25TA4 PO; +biotin
--- NOTE | 2017-11-29 19:08 | ED.ADGEN ---
Past History Past Medical History: Anxiety, TIA, Other Past Surgical History: Hysterectomy, Other Smoking: Cigarettes Alcohol Use: Occasionally Drug Use: None Adult General Chief Complaint Chief Complaint ".. I started feeling weird again... like my speech was off .. and they could not understand what I was saying... and tingle in my Lt. hand.. like the last time they said I had a TIA.. I am to see Dr. Zuleta tomorrow.. for my last TIA... " " My heart was beating fast... and then slow.. but I ve had that problem before...." HPI HPI Patient is a 34 year old female who presents with above hx and complaints of slurred speech and tingling in Lt. hand. Patient's onset of symptoms occurred when she was talking to her and friend. Patient states she had trouble forming her words. Pt. then development of left hand fingertips numbness. This episode did not have double vision as prior episode of TIA. Pt. previous TIA episode 11/16 and is in the process further evaluation. Patient has a follow-up appointment in the morning with Dr. Zuleta- neurology. Patient's had previous episodes of TIA like episodes. One time it was felt that cardiac dysrhythmias caused her symptoms. Patient did undergo partial atrial ablation by Dr. Gomez at [facility], for episodes of SVT. The Ablation did reduce the episodes of SVT. Patient has also had episodes of bradycardia into the 40s. that are symptomatic. Patient states she has had fast and slow heart rates all day. Patient has had a previous MRI approximate year ago which she states was normal. Patient does have significant family history were father at age 36 due to dysrhythmia. There is a history of DVT, pulmonary embolisms, due to factor V Leiden deficiency in the family. Patient advises her test for factor V deficiency was negative. Patient does continue to smoke. On previous admission for TIA patient was found to have hypokalemia. GSC= 15, NIH = 1 Currently patient moves all extremities on request. DTRs are +2. No drift. 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 Subjective sensation and numbness and left fingertips. Pt. give no hx of MS and Chronic Migraines. Review of Systems Review of Systems Constitutional: Denies fever or chills [] Eyes: Denies change in visual acuity, redness, or eye pain [] HENT: Denies nasal congestion or sore throat [] Respiratory: Denies cough or shortness of breath [] Cardiovascular: No additional information not addressed in HPI [] GI: Denies abdominal pain, nausea, vomiting, bloody stools or diarrhea [] : Denies dysuria or hematuria [] Musculoskeletal: Denies back pain or joint pain [] Integument: Denies rash or skin lesions [] Neurologic: Denies headache, focal weakness or sensory changes [] Endocrine: Denies polyuria or polydipsia [] All other systems were reviewed and found to be within normal limits, except as documented in this note. Family History Family History Father of cardiac dysrhythmia age 36 Current Medications Current Medications Current Medications Medications (Trade) Dose Ordered Sig/Deisi Start Time Stop Time Status Last Admin Dose Admin Aspirin (Aspirin) 300 mg STK-MED ONCE 11/29/17 19:54 11/29/17 19:55 DC Aspirin (Oren Aspirin) 325 mg 1X ONCE 11/29/17 19:45 11/29/17 19:46 DC See Nursing for home meds Allergies Allergies Allergies Coded Allergies Type Severity Reaction Last Updated Verified No Known Drug Allergies 11/16/17 No Physical Exam Physical Exam Constitutional: Well developed, well nourished, in acute emotional distress, non -toxic appearance. [] HENT: Normocephalic, atraumatic, bilateral external ears normal, oropharynx moist, no oral exudates, nose normal. [] Eyes: PERRLA, EOMI, conjunctiva normal, no discharge. [] Neck: Normal range of motion, no tenderness, supple, no stridor. [] Cardiovascular:Tachycardia Heart rate, regular rhythm, no murmur [] Lungs & Thorax: Bilateral breath sounds equal with scattered wheezes on auscultation [] Abdomen: Bowel sounds normal, soft, no tenderness, no masses, no pulsatile masses. [] Old surgery scar. Skin: Warm, dry, no erythema, no rash. [] Back: No tenderness, no CVA tenderness. [] Extremities: No tenderness, no cyanosis, no clubbing, ROM intact, no edema. [] Neurologic: Alert and oriented X 3, normal motor function, normal sensory function, no focal deficits noted. []DTR + 2, no drift, hand etcher helper equal. Complaints of Lt. finger tip numbness. No field loss appreciated. Psychologic: Affect anxious, judgement normal, mood normal. [] Current Patient Data Vital Signs Vital Signs Date Time Temp Pulse Resp B/P (MAP) Pulse Ox O2 Delivery O2 Flow Rate FiO2 11/29/17 19:40 107 18 143/101 (115) 98 Room Air 11/29/17 19:11 97.5 Lab Results Laboratory Tests Test 11/29/17 19:16 11/29/17 19:50 11/29/17 20:00 White Blood Count 8.6 x10^3/uL (4.0-11.0) Red Blood Count 4.98 x10^6/uL (3.50-5.40) Hemoglobin 16.2 g/dL (12.0-15.5) H Hematocrit 47.5 % (36.0-47.0) H Mean Corpuscular Volume 95 fL (79-100) Mean Corpuscular Hemoglobin 33 pg (25-35) Mean Corpuscular Hemoglobin Concent 34 g/dL (31-37) Red Cell Distribution Width 13.2 % (11.5-14.5) Platelet Count 437 x10^3/uL (140-400) H Neutrophils (%) (Auto) 56 % (31-73) Lymphocytes (%) (Auto) 36 % (24-48) Monocytes (%) (Auto) 7 % (0-9) Eosinophils (%) (Auto) 1 % (0-3) Basophils (%) (Auto) 1 % (0-3) Neutrophils # (Auto) 4.8 x10^3uL (1.8-7.7) Lymphocytes # (Auto) 3.1 x10^3/uL (1.0-4.8) Monocytes # (Auto) 0.6 x10^3/uL (0.0-1.1) Eosinophils # (Auto) 0.1 x10^3/uL (0.0-0.7) Basophils # (Auto) 0.0 x10^3/uL (0.0-0.2) Prothrombin Time 9.8 SEC (9.4-11.4) Prothrombin Time INR 1.0 (0.9-1.1) PTT 25 SEC (23-33) Sodium Level 138 mmol/L (136-145) Potassium Level 3.3 mmol/L (3.5-5.1) L Chloride Level 101 mmol/L (98-107) Carbon Dioxide Level 31 mmol/L (21-32) Anion Gap 6 (6-14) Blood Urea Nitrogen 5 mg/dL (7-20) L Creatinine 0.6 mg/dL (0.6-1.0) Estimated GFR (Cockcroft-Gault) 114.4 Glucose Level 119 mg/dL (70-99) H Calcium Level 8.4 mg/dL (8.5-10.1) L Magnesium Level 2.0 mg/dL (1.8-2.4) Creatine Kinase 179 U/L (26-192) Creatine Kinase MB (Mass) 1.0 ng/mL (0.0-3.6) Creatine Kinase MB Relative Index 0.6 % (0-4) Troponin I Quantitative < 0.017 ng/mL (0-0.055) Erythrocyte Sedimentation Rate 5 (0-25) Urine Collection Type U cath Urine Color Straw Urine Clarity Clear Urine pH 6.0 Urine Specific [place] <=1.005 Urine Protein Neg (NEG-TRACE) Urine Glucose (UA) Neg mg/dL (NEG) Urine Ketones (Stick) Neg mg/dL (NEG) Urine Blood Neg (NEG) Urine Nitrite Neg (NEG) Urine Bilirubin Neg (NEG) Urine Urobilinogen Dipstick 0.2 mg/dL (0.2 mg/dL) Urine Leukocyte Esterase Neg (NEG) Urine RBC 0 /HPF (0-2) Urine WBC Rare /HPF (0-4) Urine Squamous Epithelial Cells Occ /LPF Urine Bacteria Few /HPF (0-FEW) Urine Opiates Screen Neg (NEG) Urine Methadone Screen Neg (NEG) Urine Barbiturates Neg (NEG) Urine Phencyclidine Screen Neg (NEG) Urine Amphetamine/Methamphetamine Neg (NEG) Urine Benzodiazepines Screen Neg (NEG) Urine Cocaine Screen Neg (NEG) Urine Cannabinoids Screen Neg (NEG) Urine Ethyl Alcohol Pos (NEG) EKG EKG My interpretation EKG shows a sinus tachycardia and 17 bpm. No acute morphology consistent with STEMI.[] Radiology/Procedures Radiology/Procedures My interpretation CT of head shows no shift, mass, edema, bleed, or fracture. Compared to Prior CT shows no acute changes.[] My interpretation of chest x-ray shows no acute cardiopulmonary findings. Course & Med Decision Making Course & Med Decision Making Pertinent Labs and Imaging studies reviewed. (See chart for details) Discussed presentation, testing and treatment plan with Dr. Acuna. Will admit with neurology and cardiology follow-up. [] Final Impression Final Impression 1. TIA v s CVA vs Atypical Migraine 2. Mental Status Change 3. Thrombocytosis 437 4. Elevated Hgb 16.2 5. Hypokalemia 3.3 6. Tobacco Abuse 7. Hx. of Dysrhythmia- SVT-/ Bradycardia- Hx. Ablation- 1 yr ago. 8. ETOH use [] Dragon Disclaimer Dragon Disclaimer This electronic medical record was generated, in whole or in part, using a voice recognition dictation system. GABRIELLA GEORGE MD Nov 29, 2017 19:08
[2017-11-29 19:39] LABS: BASO % 1 % (0-3); EOS # 0.1 x10^3/uL (0.0-0.7); EOS % 1 % (0-3); HEMATOCRIT 47.5 % (36.0-47.0); HEMOGLOBIN 16.2 g/dL (12.0-15.5); LYMPH # 3.1 x10^3/uL (1.0-4.8); LYMPH % 36 % (24-48); MEAN CORPUSCULAR HEMOGLOBIN 33 pg (25-35); MEAN CORPUSCULAR HGB CONC 34 g/dL (31-37); MEAN CORPUSCULAR VOLUME 95 fL (79-100); MONO # 0.6 x10^3/uL (0.0-1.1); MONO % 7 % (0-9); NEUT # 4.8 x10^3uL (1.8-7.7); NEUT % 56 % (31-73); PLATELET COUNT 437 x10^3/uL (140-400); RED BLOOD COUNT 4.98 x10^6/uL (3.50-5.40); RED CELL DISTRIBUTION WIDTH 13.2 % (11.5-14.5); WHITE BLOOD COUNT 8.6 x10^3/uL (4.0-11.0)
[2017-11-29] MEDS ORDERED: ASPIRIN 325 MG TABLET PO ONE (19:45)
[2017-11-29] MEDS ORDERED: ASPIRIN 300 MG SUPP.RECT ONE (19:54)
[2017-11-29 19:56] LABS: CALCIUM 8.4 mg/dL (8.5-10.1); CREATININE 0.6 mg/dL (0.6-1.0); GFR 114.4; POTASSIUM 3.3 mmol/L (3.5-5.1)
[2017-11-29] MEDS ORDERED: ASPIRIN 300 MG SUPP.RECT PR ONE (20:00)
--- NOTE | 2017-11-29 20:02 | RAD ---
PQRS Compliance statement: One or more of the following individualized dose reduction techniques were utilized for this examination: 1. Automated exposure control. 2. Adjustment of the mA and/or kV according to patient size. 3. Use of iterative reconstruction technique. Indication:Altered mental status, confusion, history of TIA TECHNIQUE: CT head without IV contrast COMPARISON:11/16/2017 FINDINGS: No pathologic extra-axial or intra-axial fluid collection. The ventricles and basal cisterns are within normal limits. No acute intracranial bleed. No focal loss of beard-white differentiation. Orbits within normal limits. No suspicious calvarial lesion. Visualized paranasal sinuses and mastoid air cells are clear. IMPRESSION: No acute intracranial process. If concern for acute ischemic stroke is high, please consider MRI brain. Critical findings were identified on 11/29/2017 7:53 PM, read back and verified with Dr. Hayward on 11/29/2017 7:[address] Gustavo Johnson DO. In Electronically signed by: Gustavo Johnson DO (11/29/2017 7:58 PM) [facility]
--- NOTE | 2017-11-29 20:05 | EKG ---
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
[2017-11-29] MEDS ORDERED: POTASSIUM CL 40MEQ IN 0.9%NACL 1,000 ML IV ONE (20:15)
[2017-11-29] MEDS ORDERED: ONDANSETRON PF 4 MG/2 ML VIAL. IV PRN (20:15)
[2017-11-29] MEDS ORDERED: ENOXAPARIN ** NOTE DOSE ** SYRINGE SQ ONE (20:30)
[2017-11-29 20:35] LABS: BARBITURATES NEG (NEG); BENZODIAZEPINES NEG (NEG); CANNABINOIDS NEG (NEG); COCAINE NEG (NEG); METHADONE NEG (NEG); OPIATES NEG (NEG); PHENCYCLIDINE NEG (NEG)
[2017-11-29 20:36] LABS: AMPHETAMINE/METHAMPHETAMINE NEG (NEG)
[2017-11-29 20:38] LABS: BACTERIA,URINE FEW /HPF (0-FEW); BILIRUBIN,URINE NEG (NEG); CLARITY,URINE CLEAR; COLOR,URINE STRAW; GLUCOSE,URINE NEG (NEG); NITRITE,URINE NEG (NEG); RBC,URINE 0 /HPF (0-2); SQUAMOUS EPITHELIAL CELL,UR OCC /LPF; UROBILINOGEN,URINE 0.2 mg/dL (0.2 mg/dL); WBC,URINE RARE /HPF (0-4)
[2017-11-29] MEDS: ENOXAPARIN ** NOTE DOSE ** SYRINGE SQ SCH (20:56)
[2017-11-29 23:05] VITALS: BP 117/80
--- NOTE | 2017-11-29 23:15 | NUR ---
Sheri Gomez a 32 yr old female was admitted to ICU-5, inpatient telemetry, Dr. Acuna's service for possible TIA. Admission assessment and process completed. NIHSS completed with a score of zero. Pt's states pt's symptoms have pretty much resolved. Pt states she has some tingling still in her left arm and mild weakness. Pt has failed the swallow test in ER. Pt wanted to attempt it again, due to feeling better. Pt can take sips of water, however she states it feels like there is something in her throat making it hard to swallow. Pt does not choke, and water does not run out of her mouth. Advised pt that based on these issues, we will have to reassess in a few hours for improvement, consults for speech therapy ordered per protocol.
[2017-11-30 03:00] VITALS: BP 110/63
--- NOTE | 2017-11-30 05:24 | NUR ---
routine consult was called to [facility] Cardiology for : cardiac echo, HTN, admitted for TIA
[2017-11-30 06:35] VITALS: BP 116/75
[2017-11-30 07:01] LABS: BASO % 1 % (0-3); EOS # 0.1 x10^3/uL (0.0-0.7); EOS % 1 % (0-3); HEMATOCRIT 41.7 % (36.0-47.0); HEMOGLOBIN 14.1 g/dL (12.0-15.5); LYMPH # 1.7 x10^3/uL (1.0-4.8); LYMPH % 31 % (24-48); MEAN CORPUSCULAR HEMOGLOBIN 33 pg (25-35); MEAN CORPUSCULAR HGB CONC 34 g/dL (31-37); MEAN CORPUSCULAR VOLUME 96 fL (79-100); MONO # 0.5 x10^3/uL (0.0-1.1); MONO % 9 % (0-9); NEUT # 3.2 x10^3uL (1.8-7.7); NEUT % 58 % (31-73); PLATELET COUNT 369 x10^3/uL (140-400); RED BLOOD COUNT 4.32 x10^6/uL (3.50-5.40); RED CELL DISTRIBUTION WIDTH 13.2 % (11.5-14.5); WHITE BLOOD COUNT 5.6 x10^3/uL (4.0-11.0)
[2017-11-30 07:13] LABS: CALCIUM 7.9 mg/dL (8.5-10.1); CREATININE 0.5 mg/dL (0.6-1.0); GFR 141.2
[2017-11-30] MEDS ORDERED: ASPIRIN 81 MG TAB.CHEW PO SCH ×2 (08:00→09:00)
[2017-11-30] MEDS: ENOXAPARIN ** NOTE DOSE ** SYRINGE SQ SCH (08:22)
--- NOTE | 2017-11-30 08:47 | RAD ---
Chest radiograph 11/29/2017 6:55 PM INDICATION: Altered mental status COMPARISON: April 24, 2013 TECHNIQUE: Frontal view of the chest is provided. FINDINGS: The cardiomediastinal silhouette is within normal limits. There are no pleural effusions. There is no pulmonary vascular congestion. There is no pneumothorax. The lungs are clear. No significant osseous abnormality is identified. IMPRESSION: No acute cardiopulmonary process. Electronically signed by: Eve Hogan MD (11/30/2017 8:43 AM) [id number]
[2017-11-30] MEDS ORDERED: METOPROLOL TART IMMED RELEASE 25 MG TABLET PO SCH (09:00)
--- NOTE | 2017-11-30 12:32 | PDOC2 ---
VENESSA NINO SOFTWARE QUALITY AUTOMATION ENGINEER 11/30/17 1232: CONSULT Date of Admission DATE: 11/30/17 TIME: 12:02 Reason for Consult: TIA History of Present Illness Ms Gomez is a 32 year old female who presented last PM to the ED with stroke symptoms which have completely resolved. This is her second TIA in a month and 3rd in the last year. She complains of episodes of rapid heart rate as well as episodes of low heart rates necessitating her holding metoprolol. She denies chest discomfort but does report that her episodes of abnormal rate, especially the fast rates, causes her to have feelings of weakness, nauseas and disorientation. she reports needing to picker/puller and sit when this occurs while driving. She denies congestive symptoms and denies syncope. Cardiovascular: Other (RFA for SVT) CENTRAL NERVOUS SYSTEM: Migraine, TIA Psych: Anxiety, Depression Past Surgical History appendectomy 1997 cyst removal from right ovary 1997 cyst removal from rt ovary 07/2009 Hysterectomy Family History both mother and grandmother have factor V deficiency. SCD in her father at age 36. Social History 1ppd smoker, social ETOH only and not a heavy drinker, no illicit drugs Current Medications Current Medications Aspirin (Oren Aspirin) 325 mg 1X ONCE PO ; Start 11/29/17 at 19:45; Stop 11/29 at 19:46; Status DC Aspirin (Aspirin) 300 mg 1X ONCE CA Last administered on 11/29/17at 20:03; Start 11/29/17 at 20:00; Stop 11/29/17 at 20:01; Status DC Aspirin (Aspirin) 300 mg STK-MED ONCE .ROUTE ; Start 11/29/17 at 19:54; Stop at 19:55; Status DC Enoxaparin Sodium (Lovenox 80mg Syringe) 80 mg 1X ONCE SQ ; Start 11/29/17 at 20:30; Stop 11/29/17 at 20:31; Status Cancel Potassium Chloride/Sodium Chloride 1,000 ml @ 75 mls/hr 1X ONCE IV Last administered on 11/29/17at 20:55; Start 11/29/17 at 20:15; Stop 11/30/17 at 09:34 ; Status DC Ondansetron HCl (Zofran) 4 mg PRN Q4HRS PRN IV NAUSEA/VOMITING; Start 11/29/17 at 20:15; Stop 11/30/17 at 20:14 Aspirin (Children'S Aspirin) 81 mg DAILY PO ; Start 11/30/17 at 09:00; Stop at 09:00; Status DC Enoxaparin Sodium (Lovenox 80mg Syringe) 73 mg BID SQ Last administered on 11/30at 08:22; Start 11/29/17 at 21:00 Guaifenesin (Mucinex Er) 600 mg BID PO Last administered on 11/30/17at 08:21; Start 11/30/17 at 09:00 Metoprolol Tartrate (Lopressor) 25 mg DAILY PO Last administered on 11/30/17at 08:21; Start 11/30/17 at 09:00 Aspirin (Children'S Aspirin) 81 mg DAILYWBKFT PO Last administered on at 08:21; Start 11/30/17 at 08:00 Active Scripts Active Aspirin 81 Mg Tab.chew 81 Mg PO DAILYWBKFT 100 Days Reported Mucinex (Guaifenesin) 600 Mg Tablet.er 1 Tab PO BID Metoprolol Tartrate 25 Mg Tablet 1 Tab PO DAILY [biotin] One Daily Complete (Multivitamin With Minerals) 1 Each Tablet 1 Each PO DAILY08 Allergies: Coded Allergies: No Known Drug Allergies (Unverified , 11/16/17) Review of System as per HPI or negative General: Alert, Oriented X3, Cooperative, No acute distress HEENT: Atraumatic, EOMI, Mucous membr. moist/pink Lungs: Clear to auscultation, Normal air movement Heart: Regular rate, Normal S1, Normal S2, No murmurs Abdomen: Normal bowel sounds, Soft, No tenderness Extremities: No cyanosis, No edema, Normal pulses Neuro: Normal speech, Strength at 5/5 X4 ext Psych/Mental Status: Mental status NL, Mood NL VITALS Vital Signs Date Time Temp Pulse Resp B/P (MAP) Pulse Ox O2 Delivery O2 Flow Rate FiO2 11/30/17 11:14 68 11/30/17 08:21 116/75 11/30/17 08:00 Room Air 11/30/17 06:35 16 11/30/17 03:00 96 11/29/17 23:05 97.3 Labs Laboratory Tests Test 11/29/17 19:16 11/29/17 19:50 11/29/17 20:00 11/30/17 05:48 White Blood Count 8.6 x10^3/uL (4.0-11.0) 5.6 x10^3/uL (4.0-11.0) Red Blood Count 4.98 x10^6/uL (3.50-5.40) 4.32 x10^6/uL (3.50-5.40) Hemoglobin 16.2 g/dL (12.0-15.5) 14.1 g/dL (12.0-15.5) Hematocrit 47.5 % (36.0-47.0) 41.7 % (36.0-47.0) Mean Corpuscular Volume 95 fL (79-100) 96 fL (79-100) Mean Corpuscular Hemoglobin 33 pg (25-35) 33 pg (25-35) Mean Corpuscular Hemoglobin Concent 34 g/dL (31-37) 34 g/dL (31-37) Red Cell Distribution Width 13.2 % (11.5-14.5) 13.2 % (11.5-14.5) Platelet Count 437 x10^3/uL (140-400) 369 x10^3/uL (140-400) Neutrophils (%) (Auto) 56 % (31-73) 58 % (31-73) Lymphocytes (%) (Auto) 36 % (24-48) 31 % (24-48) Monocytes (%) (Auto) 7 % (0-9) 9 % (0-9) Eosinophils (%) (Auto) 1 % (0-3) 1 % (0-3) Basophils (%) (Auto) 1 % (0-3) 1 % (0-3) Neutrophils # (Auto) 4.8 x10^3uL (1.8-7.7) 3.2 x10^3uL (1.8-7.7) Lymphocytes # (Auto) 3.1 x10^3/uL (1.0-4.8) 1.7 x10^3/uL (1.0-4.8) Monocytes # (Auto) 0.6 x10^3/uL (0.0-1.1) 0.5 x10^3/uL (0.0-1.1) Eosinophils # (Auto) 0.1 x10^3/uL (0.0-0.7) 0.1 x10^3/uL (0.0-0.7) Basophils # (Auto) 0.0 x10^3/uL (0.0-0.2) 0.0 x10^3/uL (0.0-0.2) Prothrombin Time 9.8 SEC (9.4-11.4) Prothromb Time International Ratio 1.0 (0.9-1.1) Activated Partial Thromboplast Time 25 SEC (23-33) Sodium Level 138 mmol/L (136-145) 142 mmol/L (136-145) Potassium Level 3.3 mmol/L (3.5-5.1) 4.0 mmol/L (3.5-5.1) Chloride Level 101 mmol/L (98-107) 107 mmol/L (98-107) Carbon Dioxide Level 31 mmol/L (21-32) 26 mmol/L (21-32) Anion Gap 6 (6-14) 9 (6-14) Blood Urea Nitrogen 5 mg/dL (7-20) 6 mg/dL (7-20) Creatinine 0.6 mg/dL (0.6-1.0) 0.5 mg/dL (0.6-1.0) Estimated GFR (Cockcroft-Gault) 114.4 141.2 Glucose Level 119 mg/dL (70-99) 81 mg/dL (70-99) Calcium Level 8.4 mg/dL (8.5-10.1) 7.9 mg/dL (8.5-10.1) Magnesium Level 2.0 mg/dL (1.8-2.4) Creatine Kinase 179 U/L (26-192) Creatine Kinase MB (Mass) 1.0 ng/mL (0.0-3.6) Creatine Kinase MB Relative Index 0.6 % (0-4) Troponin I Quantitative < 0.017 ng/mL (0-0.055) Ethyl Alcohol Level 290 mg/dL (0-10) Erythrocyte Sedimentation Rate 5 (0-25) Urine Collection Type U cath Urine Color Straw Urine Clarity Clear Urine pH 6.0 Urine Specific [place] <=1.005 Urine Protein Neg (NEG-TRACE) Urine Glucose (UA) Neg mg/dL (NEG) Urine Ketones (Stick) Neg mg/dL (NEG) Urine Blood Neg (NEG) Urine Nitrite Neg (NEG) Urine Bilirubin Neg (NEG) Urine Urobilinogen Dipstick 0.2 mg/dL (0.2 mg/dL) Urine Leukocyte Esterase Neg (NEG) Urine RBC 0 /HPF (0-2) Urine WBC Rare /HPF (0-4) Urine Squamous Epithelial Cells Occ /LPF Urine Bacteria Few /HPF (0-FEW) Urine Opiates Screen Neg (NEG) Urine Methadone Screen Neg (NEG) Urine Barbiturates Neg (NEG) Urine Phencyclidine Screen Neg (NEG) Urine Amphetamine/Methamphetamine Neg (NEG) Urine Benzodiazepines Screen Neg (NEG) Urine Cocaine Screen Neg (NEG) Urine Cannabinoids Screen Neg (NEG) Urine Ethyl Alcohol Pos (NEG) Images CT head IMPRESSION: No acute intracranial process. If concern for acute ischemic stroke is high, please consider MRI brain. CXR - IMPRESSION: No acute cardiopulmonary process. EKG - sinus rhythm without acute abn Assessment/Plan 1. Recurrent TIA - suggest echo with bubble study, carotid duplex 2. palpitations in patient with history of SVT ablation - no significant arrhythmias on telemetry 3. family history of factor V deficiency and SCD. Suggest echo with bubble study and carotid duplex prior to discharge. If no significant abn then ok to discharge and follow up with primary foundry hand as scheduled next Sunday. In light of recurrent TIAs would suggest anticoagulation and loop recorder insertion. BETI RODRIGUEZ MD 11/30/17 0057: CONSULT Assessment/Plan The patient was seen and examined. TIA, recurrent. Patient now at baseline. Continue tele. Will check carotids and ECHO with bubble study. Followed by EP for tachyarrhythmias and S/P an ablation. Will obtain old records. Continue home meds. Anticoagulation if OK with neuro. Possible discharge post testing. Follow up next week. Family history of factor V deficiency. Check lab. Outpt. monitoring. Thank you for allowing us to participate in the care of your patient. VENESSA NINO APRN Nov 30, 2017 12:32 BETI RODRIGUEZ MD Nov 30, 2017 17:40
--- NOTE | 2017-11-30 12:36 | RAD ---
Carotid ultrasound, 11/30/2017: HISTORY: TIA, speech difficulty, left-sided weakness, visual impairment Duplex evaluation of the carotid arteries and neck was performed including grayscale, color-flow and spectral Doppler analysis. No significant atherosclerotic plaquing is identified. The peak systolic velocity in the right internal carotid artery is 69 cm/s with an end-diastolic velocity of 26 cm/s and an internal carotid to common carotid artery ratio 1.1. The peak systolic velocity in the left internal carotid artery is 86 cm/s with an end-diastolic velocity of 39 cm/s and an internal carotid to common carotid artery ratio 1.0. These Doppler findings do not suggest significant stenosis. Antegrade flow is present in both vertebral arteries in the neck. IMPRESSION: No duplex evidence of a significant carotid stenosis in the neck. Note: Stenosis calculations for CT, MRA and conventional angiography are based upon determination of the distal ICA diameter in accordance with the NASCET methodology. Stenosis calculations for Doppler studies are derived from validated velocity criteria which are known to correlate with NASCET methodology of determining stenosis. Electronically signed by: Maik Parson MD (11/30/2017 12:32 PM) [facility]
[2017-11-30] MEDS ORDERED: RIVA20TA2 PO (12:57)
--- NOTE | 2017-11-30 14:50 | NUR ---
Discharge instructions provided to the pt, pt is awaiting echocardiogram to be performed and then per dr's orders, the pt may discharge and follow up with all of her speciality drs and primary dr. Pt still has IV inserted, will d/c when echo is done. Will CTM.
[2017-11-30 15:41] VITALS: BP 106/72
--- NOTE | 2017-11-30 16:09 | NUR ---
Pt's Iv discontinued, Echo and bubble study performed. Pt awaiting for for transportation home.
--- NOTE | 2017-11-30 18:08 | CARD ---
MR#: [id number] Date of Study: 11/30/2017 Ordering Physician: VENESSA NINO, Referring Physician: ERINN THOMPSON, Tech: LAINEY Greenwood APPROVED REPORT EXAM: Two-dimensional and M-mode echocardiogram with Doppler and color Doppler. Other Information Quality : AverageHR: 60bpm Technically limited study due to body habitus. INDICATION CVA/TIA 2D DIMENSIONS RVDd3.0 (2.9-3.5cm)Left Atrium(2D)2.5 (1.6-4.0cm) IVSd0.7 (0.7-1.1cm)Aortic Root(2D)2.6 (2.0-3.7cm) LVDd4.5 (3.9-5.9cm)LVOT Diameter2.2 (1.8-2.4cm) PWd1.3 (0.7-1.1cm)LVDs3.3 (2.5-4.0cm) FS (%) 28.0 %SV47.9 ml LVEF(%)55.0 (>50%) Aortic Valve AoV Peak Florentino.139.7cm/sAoV VTI33.1cm AO Peak GR.7.8mmHgLVOT Peak Florentino.78.6cm/s LVOT VTI 18.33cmAO Mean GR.5mmHg RADHA (VMAX)2.84ux8KJJ (VTI)2.05cm2 Mitral Valve MV E Lpyzvwsa04.0cm/sMV E Peak Gr.54mmHg MV DECEL UWMB315moQB A Tauscotr07.8cm/s E/A Ratio2.0 Pulmonary Valve PV Peak Bvuguatn78.6cm/sPV Peak Grad.3mmHg Tricuspid Valve TR P. Pijkavif917iv/sRAP FGCZINIM2diJr TR Peak Gr.20fvVmIMPO45biAg LEFT VENTRICLE The left ventricle is normal size. There is mild LVPW hypertrophy. The left ventricular systolic func tion is normal and the ejection fraction is within normal range. EF 55% There is normal LV segmental wall motion. The left ventricular diastolic function and filling is normal for age. There is no ventr icular septal defect visualized. RIGHT VENTRICLE The right ventricle is normal size. The right ventricular systolic function is normal. ATRIA The left atrium size is normal. The right atrium size is normal. Injection of bubbles documented no i nteratrial shunt. The interatrial septum is intact with no evidence for an atrial septal defect or pa tent foramen ovale as noted on 2-D or Doppler imaging. AORTIC VALVE The aortic valve is not well visualized. Doppler and Color Flow revealed no significant aortic regurg itation. There is no significant aortic valvular stenosis. There is no aortic valvular vegetation. MITRAL VALVE The mitral valve is thickened but opens well. There is no evidence of mitral valve prolapse. There is no mitral valve stenosis. Doppler and Color-flow revealed trace to mild mitral regurgitation. TRICUSPID VALVE The tricuspid valve leaflets are thickened , but open well. There is no pulmonary hypertension. The P A pressure was estimated at 28 mmHg. There is no tricuspid valve prolapse or vegetation. There is no tricuspid valve stenosis. PULMONIC VALVE The pulmonic valve is not well visualized. Doppler and Color Flow revealed no pulmonic valvular regur gitation. There is no pulmonic valvular stenosis. GREAT VESSELS The aortic root is normal in size. The IVC is dilated and collapses >50% with inspiration. PERICARDIAL EFFUSION There is no pleural effusion. There is no evidence of significant pericardial effusion. Critical Notification Critical Value: No <Conclusion> The left ventricular systolic function is normal and the ejection fraction is within normal range. EF 55% There is normal LV segmental wall motion. Injection of bubbles documented no interatrial shunt. The interatrial septum is intact with no eviden ce for an atrial septal defect or patent foramen ovale as noted on 2-D or Doppler imaging. Signed by : Farhat Gómez, Electronically Approved : 11/30/2017 18:07:17
--- NOTE | 2017-11-30 19:36 | CONS ---
DATE OF CONSULTATION: REFERRING PHYSICIAN: Murali Acuna MD REASON FOR CONSULTATION: Mental status changes and difficulty to speak. HISTORY OF PRESENT ILLNESS: This is a 32-year-old right-handed female who was admitted to Emergency Room on account of a new onset of difficulty finding words and speak. According to the patient, she was talking to her friends and all of a sudden her speech became slurred and not clear, and she had difficulty finding words. She stated that speech was heavy. She was rushed to Emergency Room and her symptoms somewhat started to subside over there. Initial nonenhanced head CT scan revealed no abnormalities. The patient was drinking alcohol and her alcohol level was 290. The patient was initially admitted to the same institution on 11/17/2017 on account of left-sided weakness. She had intermittent neurological symptoms, but previous neurological evaluation revealed no central nervous system pathology. According to the patient, MRI was done a year ago and it was reported normal. Last admission to [facility] was questionable for TIA. The patient has history of supraventricular tachycardia, requiring ablation. She has to see her cafeteria monitor, Dr. Gomez 1 week from today. Currently, she denies headaches, visual disturbances, nausea, vomiting, chest pain, shortness of breath or palpitation, dysarthria or dysphagia. However, she complains of intermittent tingling of the left face and left upper and lower extremities. PAST MEDICAL HISTORY: Significant for cardiac arrhythmia; supraventricular tachycardia, required ablation 2 years ago; history of bladder dysfunctions, required stimulant implant. Otherwise, as mentioned above in history of present illness. PAST SURGICAL HISTORY: Bladder stimulant implant, hysterectomy, cardiac ablation. FAMILY HISTORY: Her grandmother had history of Leiden factor V deficiency. They have been on anticoagulant. Her father at the age of 36 from massive heart attack. Her mother is doing well and she is alive, and she has a sister, who has cardiac arrhythmia, but she did not need ablation. SOCIAL HISTORY: The patient is . 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 She is a mother of 2 children, age of 15 and 11. She denies smoking, but she did drink yesterday. She denies illicit drug use. CURRENT HOME MEDICATIONS: Aspirin 81 mg daily, metoprolol 25 mg daily, multivitamins, and Mucinex 1 tab 600 mg tablet b.i.d. ALLERGIES: No known drug allergies. LABORATORY DATA: A 10-point review of system was performed as mentioned above in history of present illness. PHYSICAL EXAMINATION: GENERAL: Well-developed, well-nourished white female, not in acute distress. VITAL SIGNS: She weighs 160 pounds. Blood pressure is 116/75, respiratory rate is 16, pulse is 86 and regular, temperature is 97.3, oxygen saturation is 96% on room air. HEENT: Normocephalic, atraumatic, otherwise unremarkable. NECK: Supple. Negative for carotid bruit, lymphadenopathy or thyromegaly. LUNGS: Clear to A and P. CARDIOVASCULAR: Regular rate and rhythm. Normal S1, S2. There is no S3, S4, or murmur. ABDOMEN: Soft. Bowel sounds positive. EXTREMITIES: Negative for cyanosis, clubbing, pitting edema. NEUROLOGIC: MENTAL STATUS: The patient is alert and oriented x 3. The speech is fluent. There is no language dysfunction. Memory, judgment, and abstracting thinking are normal. The patient denies hallucination or delusion. CRANIAL NERVES: Visual herrera are full. The pupils are reactive to light and accommodation. The extraocular movements are intact. There is no nystagmus. There is no facial motor or sensory deficit. Hearing is intact bilaterally. The palate is elevated symmetrically. Sternocleidomastoid muscles are powerful bilaterally. The patient shrugs her shoulders symmetrically, protrudes her tongue in the midline without fasciculation or atrophy. MOTOR: 1. No focal muscle bulk was seen. The tone is normal. The strength is 5/5 throughout. 2. Sensory examination revealed normal pinprick, light touch, vibratory and position senses. 3. Deep tendon reflexes were symmetric and active without pathology responses. 4. Gait and coordination are normal. IMPRESSION: 1. Questionable transient ischemic attack, presented at this time with difficulty speaking and finding words. The patient had recurrent episode of left-sided weakness and paresthesia. Etiology is uncertain, rule out paroxysmal cardiac arrhythmias in respect to her previous history of cardiac arrhythmias and ablation. Patent foramen ovale should be ruled out in this young individual versus non-convulsive seizure. 2. Bladder dysfunction required a stimulant implant. RECOMMENDATIONS: 1. Follow up with her cafeteria monitor, Dr. Gomez, next week. 2. The patient may need NAYA with bubble study to rule out PFO. 3. Factor V Leiden. 4. Follow up with Dr. Wilson in 2 weeks to arrange for EEG. M Adele WILSON MD DR: TOMAS/myra JOB#: [id number] / [id number]
--- NOTE | 2017-12-05 21:59 | DS ---
DATE OF DISCHARGE: 11/30/2017 HOSPITAL COURSE: This 32-year-old female came in with left-sided weakness and some TIA-like symptoms. Apparently, she has had these in the past and is recurring. She was brought in for observation, and her potassium was a little bit on the low side of 3.3 and that was corrected. The patient did have an elevated level of 290 on her drug screen. In any case, the patient was monitored carefully. She was seen by Dr. Zuleta, neurologist, who made timely suggestions. She will have a lead placed in, see her bus monitor for possible cardiac arrhythmias, and possible NAYA. The CT scan was unremarkable. Otherwise, she will continue to be monitored carefully, and we will make further evaluation on her as indicated. Otherwise TIA, possible left-sided weakness, possible slight dehydration, and hypokalemia. Continue to monitor as an outpatient and make further evaluation on her as indicated. ERINN THOMPSON MD DR: WINTER/myra JOB#: [id number] / [id number]
== END 2017-11-30 16:24 | disposition home or self-care (01) | DRG 69 ==
LOC: ER 19:05 → EDBD 19:05 → ICU 20:00
PROVIDERS: ADMIT Family Medicine; ATTEND Family Medicine
DX: G45.9 Transient cerebral ischemic attack, unspecified (principal); I49.9 Cardiac arrhythmia, unspecified; E87.6 Hypokalemia; F32.9 Major depressive disorder, single episode, unspecified; F17.210 Nicotine dependence, cigarettes, uncomplicated; F41.9 Anxiety disorder, unspecified; N31.9 Neuromuscular dysfunction of bladder, unspecified; R56.9 Unspecified convulsions; G43.909 Migraine, unspecified, not intractable, without status migrainosus; Z79.82 Long term (current) use of aspirin; Z79.899 Other long term (current) drug therapy; Z82.49 Family history of ischemic heart disease and other diseases of the circulatory system; Z86.73 Personal history of transient ischemic attack (TIA), and cerebral infarction without residual deficits; Z90.710 Acquired absence of both cervix and uterus; E86.0 Dehydration
CPT/HCPCS: 99285; C8929; 36415; 70450; 71045; 80048; 80307; 81001; 82553; 83735; 84484; 85025; 85220; 85610; 85651; 85730; 87641; 93005; 93880; G0238; G0480; J1650; G0479

== ENCOUNTER → 2017-12-20 | Day surgery (SDC) | payer OTHER ==
[~2017-12-20] MED LIST changes: +ALBUTEROL SULFATE 2.5 MG/3 ML NEBU. NEB PRN; +ATROPINE 0.5 MG/5 ML DISP.SYRIN. IV PRN; +BENZOCAINE ONE 20% MUCOSAL SPRAY. MM; +IV RINGERS SOLUTION,LACTATED 1,000 ML IV SCH; +KETAMINE HCL 500 MG/10 ML VIAL. ONE; +LIDOCAINE 1%/EPI 1:100,000 20 ML VIAL. ONE; +LIDOCAINE 2% SYRINGE 100 MG/5 ML DISP.SYRIN. ONE; +LIDOCAINE 2% TOPICAL JELLY 30GM TUBE. TP ONE; +LIDOCAINE 2% VISCOUS 15 ML SOLUTION. SWSW ONE; +LIDOCAINE 2%/EPI 1:100,000 20 ML VIAL. ONE; +NALOXONE 0.4 MG/ML VIAL. IV PRN; +ONDANSETRON PF 4 MG/2 ML VIAL. IV PRN; +PROPOFOL 10,000 MCG/ML (20ML) VIAL IV ONE; +PROPOFOL 20 ML IV ONE; +RIVA20TA2 PO; +diphenhydrAMINE 50 MG/ML VIAL IV PRN; +oxyCODONE/APAP 5/325 1 TAB TABLET PO PRN
[2017-12-20 12:08] VITALS: BP 120/73
--- NOTE | 2017-12-20 13:07 | CARD ---
MR#: [id number] Date of Study: 12/20/2017 Ordering Physician: DAVID WAYNE, Referring Physician: DAVID WAYNE Tech: Dottie Zuniga RDCS APPROVED REPORT EXAM: Two-dimensional and M-mode echocardiogram with Doppler and color Doppler. INDICATION CVA/TIA Reason For Test : Recurrent TIA's PROCEDURE After obtaining informed consent, patient underwent transesophageal echo in the PACU. Type of Sedation : General Anesthesia Sedation was administered by Luisana Wesley CRNA. Sedation was achieved with Propofol 200 mg intravenously. Transesophageal probe was inserted and advanced into esophagus by David Wayne MD. The NAYA was performed without complications. Throughout the procedure, the blood pressure, pulse oximetry, cardiac rhythm, and rate were monitored . The patient tolerated the procedure without adverse effects. Recovery from general anesthesia was une ventful and vital signs were stable. LEFT VENTRICLE The left ventricle is normal size. There is normal left ventricular wall thickness. The left ventricu lar systolic function is normal and the ejection fraction is within normal range. The Ejection Fracti on is 55-60%. There is normal LV segmental wall motion. No left ventricle thrombus noted on this stud y. There is no ventricular septal defect visualized. There is no left ventricular aneurysm. There is no mass noted in the left ventricle. RIGHT VENTRICLE The right ventricle is normal size. The right ventricular systolic function is normal. ATRIA The left atrium size is normal. The right atrium size is normal. The interatrial septum is intact wit h no evidence for an atrial septal defect or patent foramen ovale as noted on 2-D or Doppler imaging. There is no thrombus noted in the left atrial appendage. AORTIC VALVE The aortic valve is normal in structure and function. Doppler and Color Flow revealed no significant aortic regurgitation. There is no significant aortic valvular stenosis. MITRAL VALVE The mitral valve is normal in structure and function. There is no evidence of mitral valve prolapse. There is no mitral valve stenosis. Doppler and Color Flow revealed no mitral valve regurgitation note d. TRICUSPID VALVE The tricuspid valve is normal in structure and function. Doppler and Color Flow revealed no tricuspid valve regurgitation noted. There is no tricuspid valve prolapse or vegetation. There is no tricuspid valve stenosis. PULMONIC VALVE The pulmonary valve is normal in structure and function. Doppler and Color Flow revealed no pulmonic valvular regurgitation. There is no pulmonic valvular stenosis. GREAT VESSELS The aortic root is normal in size. The ascending aorta is normal in size. The IVC is normal in size a nd collapses >50% with inspiration. Critical Notification Critical Value: No <Conclusion> The left ventricular systolic function is normal and the ejection fraction is within normal range. Th e Ejection Fraction is 55-60%. There is normal LV segmental wall motion. The interatrial septum is intact with no evidence for an atrial septal defect or patent foramen ovale as noted on 2-D or Doppler imaging. There is no thrombus noted in the left atrial appendage. Signed by : David Wayne, Electronically Approved : 12/20/2017 13:05:38
--- NOTE | 2017-12-26 09:25 | CARD ---
MR#: [id number] Date of Study: 12/26/2017 Ordering Physician: DAVID WAYNE, Referring Physician: DAVID WAYNE, Tech: APPROVED REPORT Procedure: Implantable loop recorder Indication: Recurrent TIA Procedure description: After informed consent was obtained the patient was taken to the operative suite. After sterile prep and drape of the chest the left parasternal area was infiltrated near the fourth intercostal space wi th 10 mL of 2% lidocaine. Subsequently using a 15 blade a 0.25 inch incision was made. Subsequently u sing a pre-made tunneling tool a small subcutaneous tunnel was made through which a implantable loop recorder was placed. The incision was then closed with Steri-Strips. Sterile dressing was placed. Implanted device: Confirm Rx, serial number [id number] R-wave amplitude 0.61 mV. No acute competitions were noted. <Conclusion> Successful implantation of a [employer] confirm Rx implantable loop recorder for evaluation of occult a rrhythmias in the setting of recurrent TIA. Signed by : David Wayne, Electronically Approved : 12/26/2017 09:24:11
== END | disposition home or self-care (01) ==
LOC: SURG 09:02
PROVIDERS: ATTEND Internal Medicine Cardiovascular Disease
DX: G45.8 Other transient cerebral ischemic attacks and related syndromes (principal); I49.9 Cardiac arrhythmia, unspecified; Z79.899 Other long term (current) drug therapy; Z79.82 Long term (current) use of aspirin; Z79.01 Long term (current) use of anticoagulants
CPT/HCPCS: 33282; 93312; 93320; 93325; C1764; J2704; J7120